=== PATIENT | male | born 1965 | race Hispanic/Latino ===

== ENCOUNTER 2017-05-15 06:38 | Day surgery (SDC) | payer OTHER ==
[2017-05-09 10:50] VITALS: BP 117/73
[2017-05-09 11:21] LABS: CREATININE 0.9 mg/dL (0.5-1.5)
[2017-05-09 12:18] LABS: APPEARANCE,URINE Clear (CLEAR); BILIRUBIN,URINE Negative (NEGATIVE); COLOR,URINE Yellow (YELLOW); GLUCOSE, URINE (UA) 500 mg/dL (NEGATIVE); KETONES,URINE Negative (NEGATIVE); LEUKOCYTE ESTERASE ,URINE Negative (NEGATIVE); NITRATE,URINE Negative (NEGATIVE); OCCULT BLOOD,URINE Negative (NEGATIVE); PROTEIN,URINE Negative (NEGATIVE); UROBILINOGEN,URINE 0.2 mg/dL (0.2-1.0)
[2017-05-09 12:39] LABS: BACTERIA,URINE None Seen /HPF (None Seen); RBC,URINE None Seen /HPF (0-1); SQUAMOUS EPITHELIAL CELL,UR Rare /LPF (0-2); WBC,URINE None Seen /HPF (0-1)
[~2017-05-15] VITALS: Ht 172.7 cm; Wt 93.4 kg
[2017-05-15] VITALS (10 sets, daily range): BP systolic 113–128; BP diastolic 55–77
[~2017-05-15 06:38] MED LIST: ALPR1TAB7 PO; CARV25TA77 PO; CEFTRIAXONE SODIUM 1 GM IVP SCH; LEVOFLOXACIN 500 MG/D5W 100 ML 100 ML IV SCH; METF500T6 PO; NIFE90TA4 PO; PANT40TA PO; ZOLP10TA2 PO
[2017-05-15] MEDS ORDERED: SODIUM CHLORIDE 0.9% 1000ML 1,000 ML IV ONE (07:24)
[2017-05-15] MEDS ORDERED: WATER FOR INJECTION,STERILE 20 ML VIAL ONE (07:27)
[2017-05-15] MEDS: CEFTRIAXONE SODIUM 1 GM ONE ×2 (07:31→08:20)
[2017-05-15] MEDS ORDERED: ONDANSETRON HCL 4 MG/2 ML VIAL ONE (07:47)
[2017-05-15] MEDS ORDERED: DEXAMETHASONE SOD PHOSPHATE 10MG/ML 1ML VIAL ONE (07:47)
[2017-05-15] MEDS ORDERED: NEOSTIGMINE METHYLSULFATE 1MG/ML IV ONE (07:47)
[2017-05-15] MEDS ORDERED: SUCCINYLCHOLINE 200MG/10ML SYR ONE (07:47)
[2017-05-15] MEDS ORDERED: GLYCOPYRROLATE 0.2 MG/ML 5 ML VIAL ONE (07:47)
[2017-05-15] MEDS ORDERED: PROPOFOL 10 MG/ML 20ML VIAL IV ONE (07:48)
[2017-05-15] MEDS ORDERED: MIDAZOLAM HCL 1 MG/ML 2ML VIAL ONE ×3 (07:48→08:33)
[2017-05-15] MEDS ORDERED: FENTANYL CITRATE PF 50 MCG/1 ML 2ML VIAL ONE ×2 (07:48→08:22)
[2017-05-15] MEDS ORDERED: FENTANYL CITRATE PF 50 MCG/1 ML 5ML AMP IV ONE (08:29)
[2017-06-20] MEDS ORDERED: ASPI-1181 PO (11:09)
[2017-06-25] MEDS ORDERED: NITR0.4T50 SL (06:55)
== END 2017-05-15 09:50 | disposition home or self-care (01) ==
LOC: DAH 06:38
PROVIDERS: ATTEND Urology
DX: N40.2 Nodular prostate without lower urinary tract symptoms (principal); Z85.46 Personal history of malignant neoplasm of prostate; Z82.49 Family history of ischemic heart disease and other diseases of the circulatory system
CPT/HCPCS: 36415; 55700; 76942; 80048; 81001; 82948; 87088; 88305; A4215; A4600; J0330; J0696; J1100; J2250 ×3; J2405; J2704; J2710; J3010 ×3; J3490; J7030 ×2

== ENCOUNTER → 2017-06-20 | Outpatient (CLI) | payer OTHER ==
[~2017-06-20] MED LIST changes: +ASPI-1181 PO; -CEFTRIAXONE SODIUM 1 GM IVP SCH; -LEVOFLOXACIN 500 MG/D5W 100 ML 100 ML IV SCH; +NITR0.4T50 SL
== END | disposition home or self-care (01) ==
LOC: RAH 12:54
PROVIDERS: ATTEND Internal Medicine Medical Oncology
DX: C61 Malignant neoplasm of prostate (principal)
CPT/HCPCS: 78306; A9503

== ENCOUNTER 2017-06-25 06:00 | Day surgery (SDC) | payer OTHER ==
[2017-06-20 10:47] VITALS: BP 124/75
[2017-06-20 10:57] LABS: BASOPHILS % (AUTO) 0.6 % (0.0-5.0); EOSINOPHILS % (AUTO) 2.1 % (0.0-8.0); HEMATOCRIT 40.1 % (42-54); LYMPHOCYTES % (AUTO) 31.8 % (21.0-51.0); MEAN CORPUSCULAR HEMOGLOBIN 31.4 pg (27.0-33.0); MEAN CORPUSCULAR HGB CONC 34.4 g/dL (32.0-36.0); MEAN CORPUSCULAR VOLUME 91.3 fL (79-99); MONOCYTES % (AUTO) 7.1 % (3.0-13.0); NEUTROPHILS % (AUTO) 58.4 % (40.0-77.0); PLATELET COUNT (AUTO) 195 K/uL (130-400); RED BLOOD CELL COUNT(AUTO) 4.39 MIL/uL (4.50-6.20); RED CELL DISTRIBUTION WIDTH 13.8 % (11.0-15.5); WHITE BLOOD COUNT (AUTO) 6.4 K/uL (4.8-10.8)
[2017-06-20 11:02] LABS: CREATININE 0.8 mg/dL (0.5-1.5); POTASSIUM 4.2 mmol/L (3.5-5.1)
[2017-06-20 11:05] LABS: APPEARANCE,URINE Clear (CLEAR); BILIRUBIN,URINE Negative (NEGATIVE); COLOR,URINE Yellow (YELLOW); GLUCOSE, URINE (UA) Negative (NEGATIVE); KETONES,URINE Negative (NEGATIVE); LEUKOCYTE ESTERASE ,URINE Negative (NEGATIVE); NITRATE,URINE Negative (NEGATIVE); OCCULT BLOOD,URINE Negative (NEGATIVE); PH,URINE 6.5 (5.0-8.0); PROTEIN,URINE Negative (NEGATIVE); UROBILINOGEN,URINE 0.2 mg/dL (0.2-1.0)
[2017-06-20 11:42] LABS: INR 0.95 (0.85-1.15); PARTIAL THROMBOPLASTIN TIME 29.6 SEC (26.3-35.5)
[2017-06-25] VITALS (10 sets, daily range): BP systolic 103–137; BP diastolic 59–88
[~2017-06-25] VITALS: Ht 175.3 cm; Wt 94.2 kg
[~2017-06-25 06:00] MED LIST changes: +DiphenhydrAMINE HCL 50 MG/ML VIAL IVP SCH; -NITR0.4T50 SL; +PHARMACY COMMUNICATION MISC SCH; +SODIUM CHLORIDE 0.9% 500ML 500 ML IV SCH
[2017-06-25] MEDS ORDERED: SODIUM CHLORIDE 0.9% 1000ML 1,000 ML IV ONE (06:23)
[2017-06-25] MEDS ORDERED: NITR0.4T50 SL ×2 (06:55)
[2017-06-25] MEDS ORDERED: IOPAMIDOL-370 100 ML VIAL IV ONE (07:03)
[2017-06-25] MEDS ORDERED: LIDOCAINE HCL 2% 20ML ONE (07:03)
[2017-06-25] MEDS ORDERED: HEPARIN SODIUM 1000UNIT/ML 10ML VIAL ONE (07:03)
[2017-06-25] MEDS ORDERED: ISOVUE-370 50ML VIAL IV ONE (07:03)
[2017-06-25] MEDS ORDERED: NITROGLYCERIN 5 MG/ML 10 ML VIAL IV ONE (07:03)
[2017-06-25] MEDS ORDERED: FENTANYL CITRATE PF 50 MCG/1 ML 2ML VIAL ONE (07:22)
[2017-06-25] MEDS ORDERED: MIDAZOLAM HCL 1 MG/ML 2ML VIAL ONE (07:22)
[2017-06-25] MEDS ORDERED: IOPAMIDOL-370 75 ML VIAL IV ONE (07:42)
[2017-06-25] MEDS ORDERED: SODIUM CHLORIDE 0.9% 1000ML 1,000 ML IV SCH (08:02)
[2017-06-25] MEDS ORDERED: ACETAMINOPHEN-CODEINE 300/30MG TAB PO PRN ×2 (08:15)
== END 2017-06-25 12:05 | disposition home or self-care (01) ==
LOC: DAH 06:00
PROVIDERS: ATTEND Internal Medicine Cardiovascular Disease
DX: I25.10 Atherosclerotic heart disease of native coronary artery without angina pectoris (principal)
CPT/HCPCS: 36415; 80048; 81003; 82948 ×2; 85025; 85610; 85730; 93005; 93458; A4606; C1760; C1894 ×2; J1200; J1644; J2250; J3010; J3490 ×2; J7030; Q9967 ×2; 99152; 99153

== ENCOUNTER → 2017-07-01 | Outpatient (CLI) | payer OTHER ==
[~2017-07-01] MED LIST changes: -DiphenhydrAMINE HCL 50 MG/ML VIAL IVP SCH; +IOPAMIDOL-370 75 ML VIAL IV ONE; +NITR0.4T50 SL; -PHARMACY COMMUNICATION MISC SCH; -SODIUM CHLORIDE 0.9% 500ML 500 ML IV SCH
== END | disposition home or self-care (01) ==
LOC: OIH 09:08
PROVIDERS: ATTEND Internal Medicine Medical Oncology
DX: C61 Malignant neoplasm of prostate (principal); K43.9 Ventral hernia without obstruction or gangrene; K40.20 Bilateral inguinal hernia, without obstruction or gangrene, not specified as recurrent
CPT/HCPCS: 74178; Q9967

== ENCOUNTER → 2017-07-23 | Outpatient (CLI) | payer OTHER ==
[~2017-07-23] MED LIST changes: -IOPAMIDOL-370 75 ML VIAL IV ONE
[2017-07-23 12:34] LABS: BASOPHILS % (AUTO) 0.4 % (0.0-5.0); HEMATOCRIT 40.7 % (42-54); LYMPHOCYTES % (AUTO) 34.3 % (21.0-51.0); MEAN CORPUSCULAR HEMOGLOBIN 30.4 pg (27.0-33.0); MEAN CORPUSCULAR HGB CONC 34.1 g/dL (32.0-36.0); MEAN CORPUSCULAR VOLUME 89.2 fL (79-99); NEUTROPHILS % (AUTO) 57.3 % (40.0-77.0); PLATELET COUNT (AUTO) 175 K/uL (130-400); RED BLOOD CELL COUNT(AUTO) 4.57 MIL/uL (4.50-6.20); WHITE BLOOD COUNT (AUTO) 5.4 K/uL (4.8-10.8)
[2017-07-23 12:45] LABS: ALBUMIN 3.8 g/dL (3.5-5.0); BILIRUBIN,TOTAL 0.6 mg/dL (0.2-1.0); CREATININE 0.9 mg/dL (0.5-1.5); INR 1.2 (0.85-1.15); POTASSIUM 3.8 mmol/L (3.5-5.1); PROTHROMBIN TIME 12.6 SEC (9.6-11.6); TOTAL PROTEIN, SERUM 7.2 g/dL (6.0-8.3)
== END | disposition home or self-care (01) ==
LOC: LAB 12:06
PROVIDERS: ATTEND Radiology Radiation Oncology
DX: Z01.818 Encounter for other preprocedural examination (principal); C61 Malignant neoplasm of prostate; R79.1 Abnormal coagulation profile
CPT/HCPCS: 36415; 71046; 80053; 85025; 85610; 93005

== ENCOUNTER → 2017-08-04 | Outpatient (CLI) | payer OTHER ==
[~2017-08-04] MED LIST changes: +GADOBENATE DIMEGLUMINE 20 ML IV ONE
== END | disposition home or self-care (01) ==
LOC: RAH 08-01 08:43
PROVIDERS: ATTEND Radiology Radiation Oncology
DX: C61 Malignant neoplasm of prostate (principal)
CPT/HCPCS: A9577

== ENCOUNTER 2017-08-15 02:37 | Emergency (ER) | payer OTHER ==
[~2017-08-15 02:37] MED LIST changes: -GADOBENATE DIMEGLUMINE 20 ML IV ONE
[2017-08-15] MEDS ORDERED: MECLIZINE HCL 25 MG TABLET ONE (03:16)
[2017-08-15 03:58] LABS: BASOPHILS % (AUTO) 0.8 % (0.0-5.0); EOSINOPHILS % (AUTO) 2.1 % (0.0-8.0); HEMATOCRIT 38.3 % (42-54); LYMPHOCYTES % (AUTO) 29.4 % (21.0-51.0); MEAN CORPUSCULAR HEMOGLOBIN 31.4 pg (27.0-33.0); MEAN CORPUSCULAR HGB CONC 34.8 g/dL (32.0-36.0); MEAN CORPUSCULAR VOLUME 90.3 fL (79-99); MONOCYTES % (AUTO) 6.8 % (3.0-13.0); NEUTROPHILS % (AUTO) 60.9 % (40.0-77.0); PLATELET COUNT (AUTO) 176 K/uL (130-400); RED BLOOD CELL COUNT(AUTO) 4.24 MIL/uL (4.50-6.20); RED CELL DISTRIBUTION WIDTH 13.7 % (11.0-15.5); WHITE BLOOD COUNT (AUTO) 7.3 K/uL (4.8-10.8)
[2017-08-15 04:06] LABS: POTASSIUM 3.7 mmol/L (3.5-5.1)
[2017-08-15 04:11] LABS: ALBUMIN 3.8 g/dL (3.5-5.0); BILIRUBIN,TOTAL 0.3 mg/dL (0.2-1.0)
== END 2017-08-15 04:31 | disposition home or self-care (01) ==
LOC: EDH 02:37
DX: R42 Dizziness and giddiness (principal); E11.9 Type 2 diabetes mellitus without complications; E78.5 Hyperlipidemia, unspecified; I10 Essential (primary) hypertension; Z88.5 Allergy status to narcotic agent; Z87.891 Personal history of nicotine dependence
CPT/HCPCS: 36415; 80053; 85025; 93005

== ENCOUNTER → 2018-02-17 | Outpatient (CLI) | payer OTHER ==
[~2018-02-17] MED LIST changes: +METF-444 PO; -METF500T6 PO
== END | disposition home or self-care (01) ==
LOC: LAB 11:12
PROVIDERS: ATTEND Radiology Radiation Oncology
DX: C61 Malignant neoplasm of prostate (principal); I10 Essential (primary) hypertension; E11.9 Type 2 diabetes mellitus without complications
CPT/HCPCS: 36415; 84153; 84154

== ENCOUNTER → 2018-06-11 | Outpatient (CLI) | payer OTHER ==
[2018-06-11 14:01] LABS: BASOPHILS % (AUTO) 0.6 % (0.0-5.0); EOSINOPHILS % (AUTO) 2.1 % (0.0-8.0); LYMPHOCYTES % (AUTO) 25.5 % (21.0-51.0); MEAN CORPUSCULAR HEMOGLOBIN 30.9 pg (27.0-33.0); MEAN CORPUSCULAR HGB CONC 33.5 g/dL (32.0-36.0); MEAN CORPUSCULAR VOLUME 92.2 fL (79-99); NEUTROPHILS % (AUTO) 62.8 % (40.0-77.0); PLATELET COUNT (AUTO) 176 K/uL (130-400); RED BLOOD CELL COUNT(AUTO) 4.34 MIL/uL (4.50-6.20); RED CELL DISTRIBUTION WIDTH 13.3 % (11.0-15.5); WHITE BLOOD COUNT (AUTO) 5.9 K/uL (4.8-10.8)
[2018-06-11 14:05] LABS: APPEARANCE,URINE Clear (CLEAR); BILIRUBIN,URINE Negative (NEGATIVE); COLOR,URINE Yellow (YELLOW); GLUCOSE, URINE (UA) >=1000 mg/dL (NEGATIVE); KETONES,URINE Trace mg/dL (NEGATIVE); LEUKOCYTE ESTERASE ,URINE Negative (NEGATIVE); NITRATE,URINE Negative (NEGATIVE); OCCULT BLOOD,URINE Negative (NEGATIVE); PROTEIN,URINE Negative (NEGATIVE); UROBILINOGEN,URINE 0.2 mg/dL (0.2-1.0)
[2018-06-11 14:09] LABS: HEMOGLOBIN A1C 7.1 % (4.0-6.0)
[2018-06-11 14:14] LABS: BACTERIA,URINE Rare /HPF (None Seen); RBC,URINE 0-1 /HPF (0-1); SQUAMOUS EPITHELIAL CELL,UR Rare /HPF (0-2); WBC,URINE 0-1 /HPF (0-1)
[2018-06-11 14:26] LABS: ALBUMIN 3.9 g/dL (3.5-5.0); BILIRUBIN,DIRECT 0.1 mg/dL (0.0-0.3); BILIRUBIN,TOTAL 0.3 mg/dL (0.2-1.0); CREATININE 0.8 mg/dL (0.5-1.5); POTASSIUM 3.9 mmol/L (3.5-5.1); THYROID STIMULATING HORMONE 1.3 uIU/mL (0.36-3.74); TOTAL PROTEIN, SERUM 7.4 g/dL (6.0-8.3)
== END | disposition home or self-care (01) ==
LOC: LAB 13:19
PROVIDERS: ATTEND Pediatrics
DX: E11.65 Type 2 diabetes mellitus with hyperglycemia (principal); I25.10 Atherosclerotic heart disease of native coronary artery without angina pectoris; I10 Essential (primary) hypertension; B20 Human immunodeficiency virus [HIV] disease
CPT/HCPCS: 36415; 80048; 80061; 80076; 81001; 83036; 84153; 84154; 84443; 85025

== ENCOUNTER → 2018-08-14 | Outpatient (CLI) | payer OTHER | END | disposition home or self-care (01) | LOC: LAB 07:59 | PROVIDERS: ATTEND Radiology Radiation Oncology | DX: C61 Malignant neoplasm of prostate (principal) | CPT/HCPCS: 36415; 84153 ==

== ENCOUNTER → 2018-09-11 | Outpatient (CLI) | payer OTHER | END | disposition home or self-care (01) | LOC: RAH 08:40 | PROVIDERS: ATTEND Urology | DX: C61 Malignant neoplasm of prostate (principal) | CPT/HCPCS: 78306; A9503 ==

== ENCOUNTER → 2018-09-15 | Outpatient (CLI) | payer OTHER ==
[2018-09-15 15:44] LABS: CREATININE 0.9 mg/dL (0.5-1.5)
== END | disposition home or self-care (01) ==
LOC: LAB 15:21
PROVIDERS: ATTEND Urology
DX: C61 Malignant neoplasm of prostate (principal)
CPT/HCPCS: 36415; 82565; 84520

== ENCOUNTER → 2018-09-16 | Outpatient (CLI) | payer OTHER ==
[~2018-09-16] MED LIST changes: +IOHEXOL-350 75 ML VIAL IV ONE
== END | disposition home or self-care (01) ==
LOC: RAH 08:14
PROVIDERS: ATTEND Urology
DX: K57.30 Diverticulosis of large intestine without perforation or abscess without bleeding (principal); R59.9 Enlarged lymph nodes, unspecified
CPT/HCPCS: 74177; Q9967

== ENCOUNTER → 2018-09-25 | Outpatient (CLI) | payer OTHER ==
[~2018-09-25] MED LIST changes: -IOHEXOL-350 75 ML VIAL IV ONE
[2018-09-25 11:35] LABS: BASOPHILS % (AUTO) 0.8 % (0.0-5.0); EOSINOPHILS % (AUTO) 2.3 % (0.0-8.0); LYMPHOCYTES % (AUTO) 28.2 % (21.0-51.0); MEAN CORPUSCULAR HEMOGLOBIN 30.7 pg (27.0-33.0); NEUTROPHILS % (AUTO) 59.7 % (40.0-77.0); PLATELET COUNT (AUTO) 177 K/uL (130-400); RED BLOOD CELL COUNT(AUTO) 4.41 MIL/uL (4.50-6.20); RED CELL DISTRIBUTION WIDTH 13.3 % (11.0-15.5); WHITE BLOOD COUNT (AUTO) 4.7 K/uL (4.8-10.8)
[2018-09-25 11:37] LABS: APPEARANCE,URINE Clear (CLEAR); BILIRUBIN,URINE Negative (NEGATIVE); COLOR,URINE Yellow (YELLOW); GLUCOSE, URINE (UA) Negative (NEGATIVE); KETONES,URINE Negative (NEGATIVE); LEUKOCYTE ESTERASE ,URINE Negative (NEGATIVE); NITRATE,URINE Negative (NEGATIVE); OCCULT BLOOD,URINE Negative (NEGATIVE); PROTEIN,URINE Negative (NEGATIVE); UROBILINOGEN,URINE 0.2 mg/dL (0.2-1.0)
[2018-09-25 11:56] LABS: HEMOGLOBIN A1C 7.6 % (4.0-6.0)
[2018-09-25 12:01] LABS: ALBUMIN 3.8 g/dL (3.5-5.0); BILIRUBIN,DIRECT 0.1 mg/dL (0.0-0.3); BILIRUBIN,TOTAL 0.4 mg/dL (0.2-1.0); CREATININE 0.9 mg/dL (0.5-1.5); THYROID STIMULATING HORMONE 1.45 uIU/mL (0.36-3.74)
== END | disposition home or self-care (01) ==
LOC: LAB 11:12
PROVIDERS: ATTEND Pediatrics
DX: I10 Essential (primary) hypertension (principal); E11.9 Type 2 diabetes mellitus without complications; E78.5 Hyperlipidemia, unspecified; C61 Malignant neoplasm of prostate
CPT/HCPCS: 36415; 80048; 80061; 80076; 81003; 83036; 84153; 84443; 85025

== ENCOUNTER → 2018-12-14 | Outpatient (CLI) | payer OTHER ==
[2018-12-14 16:48] LABS: BASOPHILS % (AUTO) 0.7 % (0.0-5.0); EOSINOPHILS % (AUTO) 1.7 % (0.0-8.0); HEMATOCRIT 38.7 % (42-54); LYMPHOCYTES % (AUTO) 31.2 % (21.0-51.0); MEAN CORPUSCULAR HEMOGLOBIN 31.1 pg (27.0-33.0); MEAN CORPUSCULAR HGB CONC 33.8 g/dL (32.0-36.0); MEAN CORPUSCULAR VOLUME 91.9 fL (79-99); MONOCYTES % (AUTO) 6.4 % (3.0-13.0); PLATELET COUNT (AUTO) 169 K/uL (130-400); RED BLOOD CELL COUNT(AUTO) 4.22 MIL/uL (4.50-6.20); RED CELL DISTRIBUTION WIDTH 13.8 % (11.0-15.5); WHITE BLOOD COUNT (AUTO) 6.1 K/uL (4.8-10.8)
[2018-12-14 17:47] LABS: ALBUMIN 3.7 g/dL (3.5-5.0); BILIRUBIN,TOTAL 0.3 mg/dL (0.2-1.0); TOTAL PROTEIN, SERUM 6.8 g/dL (6.0-8.3)
== END | disposition home or self-care (01) ==
LOC: LAB 10:00
PROVIDERS: ATTEND Internal Medicine Medical Oncology
DX: C61 Malignant neoplasm of prostate (principal)
CPT/HCPCS: 36415; 80053; 84153; 84154; 85025

== ENCOUNTER → 2019-02-04 | Outpatient (CLI) | payer OTHER ==
[2019-02-04 16:00] LABS: BASOPHILS % (AUTO) 0.6 % (0.0-5.0); EOSINOPHILS % (AUTO) 1.2 % (0.0-8.0); HEMATOCRIT 40.7 % (42-54); LYMPHOCYTES % (AUTO) 27.6 % (21.0-51.0); MEAN CORPUSCULAR HEMOGLOBIN 31.3 pg (27.0-33.0); MEAN CORPUSCULAR HGB CONC 34.6 g/dL (32.0-36.0); MEAN CORPUSCULAR VOLUME 90.5 fL (79-99); MONOCYTES % (AUTO) 6.9 % (3.0-13.0); NEUTROPHILS % (AUTO) 63.7 % (40.0-77.0); PLATELET COUNT (AUTO) 183 K/uL (130-400); RED CELL DISTRIBUTION WIDTH 13.4 % (11.0-15.5); WHITE BLOOD COUNT (AUTO) 6.4 K/uL (4.8-10.8)
[2019-02-04 16:01] LABS: APPEARANCE,URINE Clear (CLEAR); BILIRUBIN,URINE Negative (NEGATIVE); COLOR,URINE Yellow (YELLOW); GLUCOSE, URINE (UA) >=1000 mg/dL (NEGATIVE); KETONES,URINE Negative (NEGATIVE); LEUKOCYTE ESTERASE ,URINE Negative (NEGATIVE); NITRATE,URINE Negative (NEGATIVE); OCCULT BLOOD,URINE Negative (NEGATIVE); PROTEIN,URINE Negative (NEGATIVE)
[2019-02-04 16:08] LABS: HEMOGLOBIN A1C 9.8 % (4.0-6.0)
[2019-02-04 16:15] LABS: BACTERIA,URINE None Seen /HPF (None Seen); MUCUS,URINE Rare LPF (None Seen); SQUAMOUS EPITHELIAL CELL,UR 0-2 /HPF (0-2)
[2019-02-04 16:21] LABS: BILIRUBIN,DIRECT 0.1 mg/dL (0.0-0.3); BILIRUBIN,TOTAL 0.6 mg/dL (0.2-1.0); POTASSIUM 4.1 mmol/L (3.5-5.1); THYROID STIMULATING HORMONE 1.3 uIU/mL (0.36-3.74); TOTAL PROTEIN, SERUM 7.4 g/dL (6.0-8.3)
== END | disposition home or self-care (01) ==
LOC: RAH 15:35
PROVIDERS: ATTEND Internal Medicine Medical Oncology
DX: Z13.220 Encounter for screening for lipoid disorders (principal); Z13.29 Encounter for screening for other suspected endocrine disorder; C61 Malignant neoplasm of prostate; E11.69 Type 2 diabetes mellitus with other specified complication; M16.0 Bilateral primary osteoarthritis of hip; M47.816 Spondylosis without myelopathy or radiculopathy, lumbar region; M47.814 Spondylosis without myelopathy or radiculopathy, thoracic region; I10 Essential (primary) hypertension; R79.9 Abnormal finding of blood chemistry, unspecified
CPT/HCPCS: 36415; 72070; 72100; 73521; 73552; 80053; 80061; 80076; 81001; 82105; 82378; 83036; 84153; 84154; 84443; 85025; 86316

== ENCOUNTER 2019-03-26 14:40 | Inpatient (IN) | payer OTHER ==
[~2019-03-26] VITALS: Ht 170.2 cm; Wt 90.3 kg
[2019-03-26 15:11] LABS: BASOPHILS % (AUTO) 0.4 % (0.0-5.0); EOSINOPHILS % (AUTO) 1.3 % (0.0-8.0); HEMATOCRIT 44.3 % (42-54); LYMPHOCYTES % (AUTO) 10.4 % (21.0-51.0); MEAN CORPUSCULAR HEMOGLOBIN 31.4 pg (27.0-33.0); MEAN CORPUSCULAR VOLUME 92.5 fL (79-99); MONOCYTES % (AUTO) 7.3 % (3.0-13.0); NEUTROPHILS % (AUTO) 80.6 % (40.0-77.0); PLATELET COUNT (AUTO) 168 K/uL (130-400); RED BLOOD CELL COUNT(AUTO) 4.79 MIL/uL (4.50-6.20); RED CELL DISTRIBUTION WIDTH 13.1 % (11.0-15.5); WHITE BLOOD COUNT (AUTO) 6.1 K/uL (4.8-10.8)
[2019-03-26 15:21] LABS: POTASSIUM 4.3 mmol/L (3.5-5.1)
[2019-03-26 15:22] LABS: INR 0.93 (0.85-1.15); PROTHROMBIN TIME 9.8 SEC (9.6-11.6)
[2019-03-26 15:24] LABS: ALBUMIN 3.9 g/dL (3.5-5.0)
[2019-03-26 15:46] LABS: BILIRUBIN,TOTAL 0.5 mg/dL (0.2-1.0); TOTAL PROTEIN, SERUM 7.7 g/dL (6.0-8.3)
[2019-03-26] MEDS ORDERED: KETOROLAC TROMETHAMINE 60 MG/2 ML VIAL ONE (15:51)
[2019-03-26 16:08] LABS: APPEARANCE,URINE Cloudy (CLEAR); BILIRUBIN,URINE Negative (NEGATIVE); COLOR,URINE Dark Yellow (YELLOW); GLUCOSE, URINE (UA) Negative (NEGATIVE); KETONES,URINE Trace mg/dL (NEGATIVE); LEUKOCYTE ESTERASE ,URINE Trace (NEGATIVE); NITRATE,URINE Negative (NEGATIVE); OCCULT BLOOD,URINE Negative (NEGATIVE); PROTEIN,URINE POS 1+ mg/dL (NEGATIVE); UROBILINOGEN,URINE 0.2 mg/dL (0.2-1.0)
[2019-03-26 16:50] LABS: BACTERIA,URINE Few /HPF (None Seen); RBC,URINE 0-1 /HPF (0-1)
[2019-03-26] MEDS ORDERED: CEFTRIAXONE SODIUM 1 GM ONE (17:34)
[2019-03-26] MEDS ORDERED: ONDANSETRON HCL 4 MG/2 ML VIAL ONE (17:34)
[2019-03-26] MEDS ORDERED: HYDROMORPHONE 1 MG/1 ML AMP ONE ×2 (17:35→20:49)
[2019-03-26] MEDS ORDERED: SODIUM CHLORIDE 0.9% 100 ML IV ONE (17:36)
[2019-03-26] MEDS ORDERED: ACETAMINOPHEN 325 MG TAB PO PRN (19:15)
[2019-03-26] MEDS ORDERED: PHARMACY COMMUNICATION MISC SCH (19:15)
[2019-03-26] MEDS: PHARMACY COMMUNICATION MISC SCH (19:15)
[2019-03-26] MEDS ORDERED: PANTOPRAZOLE SODIUM 40 MG TABLET.DR PO ONE (19:29)
[2019-03-26] MEDS ORDERED: SODIUM CHLORIDE 0.9% 1000ML 1,000 ML IV ONE (19:30)
[2019-03-26 22:30] VITALS: BP 139/81
[2019-03-26] MEDS ORDERED: HYDR-4457 PO (23:13)
[2019-03-26] MEDS ORDERED: IBUP-2077 PO (23:13)
[2019-03-26] MEDS ORDERED: METF-446 PO (23:13)
[2019-03-26] MEDS ORDERED: ALPR1TAB2 PO (23:13)
[2019-03-26] MEDS ORDERED: IBUPROFEN 800 MG TAB PO PRN (23:15)
[2019-03-26] MEDS ORDERED: MELA3TAB66 PO (23:16)
[2019-03-26] MEDS: CEFTRIAXONE SODIUM 1 GM IVP SCH (23:30)
[2019-03-26] MEDS: SODIUM CHLORIDE 0.9% 1000ML 1,000 ML IV SCH (23:38)
[2019-03-27] MEDS: HYDROMORPHONE HCL 0.5 MG/0.5 ML ML IVP PRN ×2 (00:53→10:53)
[2019-03-27] MEDS: PHARMACY COMMUNICATION MISC SCH (02:47)
[2019-03-27 04:00] VITALS: BP 113/63
[2019-03-27] MEDS: SODIUM CHLORIDE 0.9% 1000ML 1,000 ML IV SCH ×3 (04:25→20:40)
[2019-03-27 05:57] LABS: HEMATOCRIT 37.4 % (42-54); MEAN CORPUSCULAR HEMOGLOBIN 31.1 pg (27.0-33.0); MEAN CORPUSCULAR HGB CONC 33.7 g/dL (32.0-36.0); MEAN CORPUSCULAR VOLUME 92.1 fL (79-99); PLATELET COUNT (AUTO) 160 K/uL (130-400); RED BLOOD CELL COUNT(AUTO) 4.06 MIL/uL (4.50-6.20); RED CELL DISTRIBUTION WIDTH 13.1 % (11.0-15.5)
[2019-03-27 06:12] LABS: CREATININE 0.8 mg/dL (0.5-1.5); MAGNESIUM 1.4 mg/dL (1.80-2.40); PHOSPHORUS 3.9 mg/dL (2.5-4.9)
[2019-03-27] MEDS: INSULIN HUMULIN R 100 UNIT/ML 3ML SQ SCH ×4 (06:38→21:00)
[2019-03-27 08:00] VITALS: BP 121/72
[2019-03-27] MEDS: METFORMIN HCL 500 MG TABLET PO SCH ×2 (08:31→16:41)
[2019-03-27] MEDS: NIFEDIPINE ER 30 MG TAB PO SCH (08:31)
[2019-03-27] MEDS: PANTOPRAZOLE SODIUM 40 MG TABLET.DR PO SCH (08:32)
[2019-03-27] MEDS: CARVEDILOL 25 MG TABLET PO SCH ×2 (08:32→20:42)
[2019-03-27] MEDS: MAGNESIUM 2GM PREMIX 50ML 50 ML IV PRN (08:35)
[2019-03-27] MEDS ORDERED: PANTOPRAZOLE SODIUM 40 MG TABLET.DR PO SCH (09:00)
[2019-03-27 11:00] VITALS: BP 121/72
[2019-03-27] MEDS: HYDROCODONE/ACETAMINOPHEN 5/325 MG TAB PO PRN ×2 (12:34→20:40)
[2019-03-27 16:00] VITALS: BP 122/65
[2019-03-27] MEDS ORDERED: ACETAMINOPHEN 325 MG TAB PO SCH ×2 (16:00→20:00)
[2019-03-27] MEDS: ONDANSETRON HCL 4 MG/2 ML VIAL IVP PRN ×2 (16:42→22:19)
[2019-03-27] MEDS: HYDROMORPHONE 1 MG/1 ML AMP IVP PRN (16:52)
--- NOTE | 2019-03-27 17:56 | NUR ---
D/C PLAN CM spoke to pt regarding d/c planning. Spouse at bedside. Pt lives with spouse. Spouse can assist in care if needed. Pt previously ind. with [facility]. Plan to home. No needs verbalized or identified. CM to f/u Addendum: 03/27/19 at 1758 by ANTONIA MODI CM Amended: Links added.
[2019-03-27 20:00] VITALS: BP 139/75
[2019-03-27] MEDS: MELATONIN 3 MG PO SCH (21:00)
[2019-03-27] MEDS: CEFTRIAXONE SODIUM 1 GM IVP SCH (22:19)
[2019-03-27 23:46] VITALS: BP 133/73
[2019-03-28] MEDS: HYDROMORPHONE 1 MG/1 ML AMP IVP PRN ×3 (00:15→12:48)
[2019-03-28 05:14] LABS: HEMOGLOBIN A1C 9.5 % (4.0-6.0)
[2019-03-28 05:33] LABS: CREATININE 0.8 mg/dL (0.5-1.5); MAGNESIUM 1.6 mg/dL (1.80-2.40); POTASSIUM 3.5 mmol/L (3.5-5.1)
[2019-03-28] MEDS ORDERED: POTASSIUM CHLORIDE 10% ELIXIR 20 MEQ/15 ML UDCUP PO PRN (06:00)
[2019-03-28] MEDS: MAGNESIUM 2GM PREMIX 50ML 50 ML IV PRN (06:22)
[2019-03-28] MEDS: INSULIN HUMULIN R 100 UNIT/ML 3ML SQ SCH ×4 (06:25→20:50)
[2019-03-28] MEDS: HYDROCODONE/ACETAMINOPHEN 5/325 MG TAB PO PRN ×4 (06:34→22:19)
[2019-03-28 08:30] VITALS: BP 130/79
[2019-03-28] MEDS: NIFEDIPINE ER 30 MG TAB PO SCH (08:44)
[2019-03-28] MEDS: CARVEDILOL 25 MG TABLET PO SCH ×2 (08:44→20:50)
[2019-03-28] MEDS: METFORMIN HCL 500 MG TABLET PO SCH ×2 (08:45→17:12)
[2019-03-28] MEDS: PANTOPRAZOLE SODIUM 40 MG TABLET.DR PO SCH (08:45)
[2019-03-28] MEDS: POTASSIUM CHLORIDE 20 MEQ ERTAB PO PRN ×2 (08:45→10:44)
[2019-03-28 11:00] VITALS: BP 123/75
[2019-03-28] MEDS: SODIUM CHLORIDE 0.9% 1000ML 1,000 ML IV SCH ×2 (11:19→20:50)
[2019-03-28] MEDS ORDERED: NALOXONE HCL 0.4 MG/1 ML ML IVP PRN (13:30)
[2019-03-28] MEDS ORDERED: DiphenhydrAMINE HCL 50 MG/ML VIAL IVP PRN (13:30)
[2019-03-28] MEDS ORDERED: DIPHENHYDRAMINE HCL 25 MG CAPSULE PO PRN (13:30)
[2019-03-28] MEDS: HYDROMORPHONE PCA 10MG/50 ML ( 0.2 MG/ML ) IV PRN (14:26)
[2019-03-28 16:00] VITALS: BP 144/83
[2019-03-28] MEDS: ALPRAZOLAM 1 MG TAB PO PRN (17:16)
--- NOTE | 2019-03-28 18:38 | NUR ---
PAGED DR. ZARAGOZA CALLED OFFICE AT [phone] REGARDING CONSULTATION FOR PATIENT, HAS NOT MADE ROUNDS OR SEEN PATIENT OF THIS DATE.
[2019-03-28 20:00] VITALS: BP 127/71
[2019-03-28] MEDS: MELATONIN 3 MG PO SCH (20:49)
[2019-03-28] MEDS: CEFTRIAXONE SODIUM 1 GM IVP SCH (20:51)
[2019-03-28] MEDS: ONDANSETRON HCL 4 MG/2 ML VIAL IVP PRN (23:39)
[2019-03-28 23:53] VITALS: BP 149/82
[2019-03-29 05:13] LABS: HEMATOCRIT 35.9 % (42-54); MEAN CORPUSCULAR HEMOGLOBIN 31.3 pg (27.0-33.0); MEAN CORPUSCULAR VOLUME 92.3 fL (79-99); NUCLEATED RED BLOOD CELLS 0.1 % (0.0-0.19); PLATELET COUNT (AUTO) 167 K/uL (130-400); RED BLOOD CELL COUNT(AUTO) 3.89 MIL/uL (4.50-6.20); RED CELL DISTRIBUTION WIDTH 13.1 % (11.0-15.5); WHITE BLOOD COUNT (AUTO) 3.9 K/uL (4.8-10.8)
[2019-03-29 05:22] LABS: CREATININE 0.8 mg/dL (0.5-1.5)
[2019-03-29] MEDS: MAGNESIUM 2GM PREMIX 50ML 50 ML IV PRN (06:04)
[2019-03-29] MEDS: INSULIN HUMULIN R 100 UNIT/ML 3ML SQ SCH ×4 (06:16→19:52)
[2019-03-29] MEDS: SODIUM CHLORIDE 0.9% 1000ML 1,000 ML IV SCH ×2 (06:18→17:15)
[2019-03-29 07:30] VITALS: BP 118/75
[2019-03-29] MEDS: HYDROMORPHONE 1 MG/1 ML AMP IVP PRN ×3 (08:40→17:24)
[2019-03-29] MEDS: NIFEDIPINE ER 30 MG TAB PO SCH (08:40)
[2019-03-29] MEDS: METFORMIN HCL 500 MG TABLET PO SCH ×2 (08:41→17:10)
[2019-03-29] MEDS: PANTOPRAZOLE SODIUM 40 MG TABLET.DR PO SCH (08:42)
[2019-03-29] MEDS: CARVEDILOL 25 MG TABLET PO SCH ×2 (08:42→19:47)
[2019-03-29] MEDS: HYDROCODONE/ACETAMINOPHEN 5/325 MG TAB PO PRN ×3 (10:25→21:49)
--- NOTE | 2019-03-29 10:30 | NUR ---
Paged Dr Cutler. waiting electronic commerce specialist back. Patient has not been seen by Dr Cutler or Dr Wilkins as of this day. S
[2019-03-29 11:00] VITALS: BP 129/88
[2019-03-29] MEDS ORDERED: FENTANYL 50 MCG/HR PATCH TD SCH (13:45)
[2019-03-29] MEDS: HYDROMORPHONE PCA 10MG/50 ML ( 0.2 MG/ML ) IV PRN (15:44)
[2019-03-29 16:00] VITALS: BP 119/76
[2019-03-29 19:28] VITALS: BP 139/75
[2019-03-29] MEDS: ALPRAZOLAM 1 MG TAB PO PRN (19:47)
[2019-03-29] MEDS: ONDANSETRON HCL 4 MG/2 ML VIAL IVP PRN (19:47)
[2019-03-29] MEDS: MELATONIN 3 MG PO SCH (19:48)
[2019-03-29] MEDS: DEXAMETHASONE SOD PHOSPHATE 4 MG/ML 1ML VIAL IVP SCH (21:41)
[2019-03-29] MEDS: CEFTRIAXONE SODIUM 1 GM IVP SCH (21:48)
[2019-03-29 23:30] VITALS: BP 135/75
[2019-03-30] MEDS: DEXAMETHASONE SOD PHOSPHATE 4 MG/ML 1ML VIAL IVP SCH ×3 (05:43→22:29)
[2019-03-30] MEDS: SODIUM CHLORIDE 0.9% 1000ML 1,000 ML IV SCH ×2 (05:44→13:59)
[2019-03-30] MEDS: INSULIN HUMULIN R 100 UNIT/ML 3ML SQ SCH ×4 (05:50→20:42)
[2019-03-30 05:55] VITALS: BP 129/74
[2019-03-30 07:55] VITALS: BP 136/76
[2019-03-30] MEDS: METFORMIN HCL 500 MG TABLET PO SCH ×2 (08:51→17:13)
[2019-03-30] MEDS: NIFEDIPINE ER 30 MG TAB PO SCH (08:51)
[2019-03-30] MEDS: PANTOPRAZOLE SODIUM 40 MG TABLET.DR PO SCH (08:52)
[2019-03-30] MEDS: CARVEDILOL 25 MG TABLET PO SCH ×2 (08:52→20:35)
[2019-03-30] MEDS: HYDROMORPHONE 1 MG/1 ML AMP IVP PRN (08:53)
[2019-03-30] MEDS: SENNOSIDES 8.6 MG TABLET PO SCH (10:21)
[2019-03-30] MEDS ORDERED: MAGNESIUM 2GM PREMIX 50ML 50 ML IV SCH (10:30)
[2019-03-30 12:08] VITALS: BP 133/85
[2019-03-30] MEDS: HYDROCODONE/ACETAMINOPHEN 5/325 MG TAB PO PRN (12:34)
[2019-03-30] MEDS ORDERED: FENTANYL 100 MCG/HR PATCH TD SCH (13:00)
[2019-03-30] MEDS: ALPRAZOLAM 1 MG TAB PO PRN (17:13)
[2019-03-30 17:14] VITALS: BP 121/77
[2019-03-30 19:15] VITALS: BP 113/69
[2019-03-30] MEDS: MELATONIN 3 MG PO SCH (20:35)
[2019-03-30] MEDS: CEFTRIAXONE SODIUM 1 GM IVP SCH (22:30)
[2019-03-31] VITALS: BP 119/71
[2019-03-31] MEDS: HYDROCODONE/ACETAMINOPHEN 5/325 MG TAB PO PRN ×3 (00:04→15:14)
[2019-03-31 05:31] LABS: CREATININE 0.9 mg/dL (0.5-1.5); MAGNESIUM 1.8 mg/dL (1.80-2.40); PHOSPHORUS 4.1 mg/dL (2.5-4.9); POTASSIUM 4.4 mmol/L (3.5-5.1)
[2019-03-31 05:38] LABS: BASOPHILS % (AUTO) 0.3 % (0.0-5.0); EOSINOPHILS % (AUTO) 0.1 % (0.0-8.0); HEMATOCRIT 34.9 % (42-54); LYMPHOCYTES % (AUTO) 24.6 % (21.0-51.0); MEAN CORPUSCULAR HEMOGLOBIN 31.7 pg (27.0-33.0); MEAN CORPUSCULAR HGB CONC 34.4 g/dL (32.0-36.0); MEAN CORPUSCULAR VOLUME 92.3 fL (79-99); MONOCYTES % (AUTO) 5.1 % (3.0-13.0); NEUTROPHILS % (AUTO) 69.9 % (40.0-77.0); PLATELET COUNT (AUTO) 177 K/uL (130-400); RED BLOOD CELL COUNT(AUTO) 3.79 MIL/uL (4.50-6.20); RED CELL DISTRIBUTION WIDTH 12.6 % (11.0-15.5); WHITE BLOOD COUNT (AUTO) 6.1 K/uL (4.8-10.8)
[2019-03-31 06:00] VITALS: BP 124/74
[2019-03-31] MEDS: DEXAMETHASONE SOD PHOSPHATE 4 MG/ML 1ML VIAL IVP SCH ×3 (06:44→21:21)
[2019-03-31] MEDS: INSULIN HUMULIN R 100 UNIT/ML 3ML SQ SCH ×4 (06:45→21:49)
[2019-03-31 08:00] VITALS: BP 139/83
[2019-03-31] MEDS: METFORMIN HCL 500 MG TABLET PO SCH ×2 (08:22→19:03)
[2019-03-31] MEDS: PANTOPRAZOLE SODIUM 40 MG TABLET.DR PO SCH (08:22)
[2019-03-31] MEDS: NIFEDIPINE ER 30 MG TAB PO SCH (08:22)
[2019-03-31] MEDS: SENNOSIDES 8.6 MG TABLET PO SCH (08:23)
[2019-03-31] MEDS: CARVEDILOL 25 MG TABLET PO SCH ×2 (08:24→21:22)
[2019-03-31 11:16] VITALS: BP 150/90
[2019-03-31] MEDS: MAGNESIUM 2GM PREMIX 50ML 50 ML IV PRN (11:29)
[2019-03-31] MEDS: HYDROMORPHONE 1 MG/1 ML AMP IVP PRN ×3 (11:30→23:51)
--- NOTE | 2019-03-31 13:49 | NUR ---
RDSCREEN - LOS X 5 Pt admitted for Intractable R. Hip Pain. 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 Recommend to add 75gm CCD. Pt tolerating Heart Healthy diet with no report of GI distress, PO intake at 100%. Pt monitored labs: BG 229, Ca 8.4, Mg 1.60. RD to continue to monitor. Please notify RD as additional nutrition concerns arise. Thank you. Addendum: 03/31/19 at [address] Amended: Links added.
[2019-03-31 16:00] VITALS: BP 145/80
[2019-03-31] MEDS: ALPRAZOLAM 1 MG TAB PO PRN (16:30)
[2019-03-31] MEDS: SODIUM CHLORIDE 0.9% 1000ML 1,000 ML IV SCH ×2 (19:15→19:46)
[2019-03-31 20:00] VITALS: BP 117/72
[2019-03-31] MEDS ORDERED: INSULIN GLARGINE 100 UNITS/ML 10 ML VIAL SQ SCH ×2 (21:00)
[2019-03-31] MEDS: MELATONIN 3 MG PO SCH (21:00)
[2019-03-31] MEDS: CEFTRIAXONE SODIUM 1 GM IVP SCH (23:44)
[2019-04-01] VITALS: BP 125/73
[2019-04-01] MEDS: HYDROMORPHONE 1 MG/1 ML AMP IVP PRN (04:17)
[2019-04-01] MEDS: SODIUM CHLORIDE 0.9% 1000ML 1,000 ML IV SCH (04:17)
[2019-04-01 04:30] VITALS: BP 127/78
[2019-04-01] MEDS: INSULIN HUMULIN R 100 UNIT/ML 3ML SQ SCH ×2 (06:51→12:01)
[2019-04-01] MEDS: MAGNESIUM 2GM PREMIX 50ML 50 ML IV PRN (07:25)
[2019-04-01 08:00] VITALS: BP 132/74
--- NOTE | 2019-04-01 08:17 | NUR ---
MET W PATIENT STILL W ++ PAIN, STATES HAS GOOD SUPPORT AT HOME . FILING FOR ST DISABILITY
[2019-04-01] MEDS: SENNOSIDES 8.6 MG TABLET PO SCH (08:57)
[2019-04-01] MEDS: NIFEDIPINE ER 30 MG TAB PO SCH (08:57)
[2019-04-01] MEDS: PANTOPRAZOLE SODIUM 40 MG TABLET.DR PO SCH (08:57)
[2019-04-01] MEDS: METFORMIN HCL 500 MG TABLET PO SCH (08:57)
[2019-04-01] MEDS: CARVEDILOL 25 MG TABLET PO SCH (08:58)
[2019-04-01] MEDS: DEXAMETHASONE SOD PHOSPHATE 4 MG/ML 1ML VIAL IVP SCH (08:58)
[2019-04-01 10:05] LABS: CREATININE 0.7 mg/dL (0.5-1.5)
[2019-04-01 11:41] VITALS: BP 122/67
[2019-04-01] MEDS ORDERED: FENTANYL 75 MCG/HR PATCH TD SCH (15:00)
--- NOTE | 2019-04-01 17:12 | NUR ---
PATIENT DISCHARGE PATIENT DISCHARGED, IV DISCONTINUED, CATHLON INTACT, BLEEDING CONTROLLED, CATHLON INTACT, PATIENT TOLERATED WITHOUT INCIDENT.
== END 2019-04-01 17:24 | disposition home or self-care (01) | DRG 543 ==
LOC: EDH 14:40 → EDHIP 18:20 → OBSVTOIN 18:20 → 3AH 22:27
PROVIDERS: ADMIT Internal Medicine; ATTEND Internal Medicine
DX: C79.51 Secondary malignant neoplasm of bone (principal); N39.0 Urinary tract infection, site not specified; C61 Malignant neoplasm of prostate; E83.42 Hypomagnesemia; E11.9 Type 2 diabetes mellitus without complications; E87.8 Other disorders of electrolyte and fluid balance, not elsewhere classified; I10 Essential (primary) hypertension; Z85.46 Personal history of malignant neoplasm of prostate; Z92.3 Personal history of irradiation
CPT/HCPCS: 36415; 71045; 72100; 73502; 74176; 76700; 78306; 80048; 80053; 80061; 81001; 82150; 82948; 83036; 83690; 83735; 84100; 84153; 85025; 85027; 85610; 85730; 87088; A9503; G0378; J0696; J1100; J1170; J1815; J1885; J2405; J3475; J7030

== ENCOUNTER → 2019-06-28 | Outpatient (CLI) | payer OTHER ==
[~2019-06-28] MED LIST changes: +ALPR1TAB2 PO; -ALPR1TAB7 PO; -ASPI-1181 PO; +HYDR-4457 PO; +IBUP-2077 PO; +MELA3TAB66 PO; -METF-444 PO; +METF-446 PO; -NITR0.4T50 SL; -ZOLP10TA2 PO
[2019-06-28 13:42] LABS: BASOPHILS % (AUTO) 0.6 % (0.0-5.0); EOSINOPHILS % (AUTO) 0.7 % (0.0-8.0); HEMATOCRIT 32.7 % (42-54); LYMPHOCYTES % (AUTO) 9.1 % (21.0-51.0); MEAN CORPUSCULAR HEMOGLOBIN 28.2 pg (27.0-33.0); MEAN CORPUSCULAR HGB CONC 32.7 g/dL (32.0-36.0); MEAN CORPUSCULAR VOLUME 86.1 fL (79-99); MONOCYTES % (AUTO) 7.8 % (3.0-13.0); NEUTROPHILS % (AUTO) 81.1 % (40.0-77.0); PLATELET COUNT (AUTO) 225 K/uL (130-400); RED CELL DISTRIBUTION WIDTH 12.7 % (11.0-15.5); WHITE BLOOD COUNT (AUTO) 5.4 K/uL (4.8-10.8)
[2019-06-28 13:50] LABS: HEMOGLOBIN A1C 7.8 % (4.0-6.0)
[2019-06-28 14:04] LABS: BILIRUBIN,DIRECT 0.1 mg/dL (0.0-0.3); BILIRUBIN,TOTAL 0.4 mg/dL (0.2-1.0); CREATININE 0.8 mg/dL (0.5-1.5); POTASSIUM 3.6 mmol/L (3.5-5.1); THYROID STIMULATING HORMONE 0.63 uIU/mL (0.36-3.74); TOTAL PROTEIN, SERUM 7.2 g/dL (6.0-8.3)
== END | disposition home or self-care (01) ==
LOC: RAH 13:02
PROVIDERS: ATTEND Internal Medicine Medical Oncology
DX: C61 Malignant neoplasm of prostate (principal); E11.65 Type 2 diabetes mellitus with hyperglycemia; G89.4 Chronic pain syndrome; I25.10 Atherosclerotic heart disease of native coronary artery without angina pectoris
CPT/HCPCS: 36415; 78306; 80048; 80061; 80076; 83036; 84153; 84443; 85025; A9503

== ENCOUNTER → 2019-07-08 | Outpatient (CLI) | payer OTHER | END | disposition home or self-care (01) | LOC: RAH 10:54 | PROVIDERS: ATTEND Radiology Radiation Oncology | DX: M25.511 Pain in right shoulder (principal) | CPT/HCPCS: 73060 ==

== ENCOUNTER 2019-07-28 08:47 | Inpatient (IN) | payer OTHER ==
[~2019-07-28] VITALS: Ht 172.7 cm; Wt 83.8 kg
[~2019-07-28 08:47] MED LIST changes: +MELA3TAB41 PO; -MELA3TAB66 PO
[2019-07-28 09:34] LABS: BASOPHILS % (AUTO) 0.3 % (0.0-5.0); EOSINOPHILS % (AUTO) 0.3 % (0.0-8.0); LYMPHOCYTES % (AUTO) 12.1 % (21.0-51.0); MEAN CORPUSCULAR HEMOGLOBIN 26.7 pg (27.0-33.0); MEAN CORPUSCULAR HGB CONC 31.1 g/dL (32.0-36.0); MEAN CORPUSCULAR VOLUME 85.9 fL (79-99); MONOCYTES % (AUTO) 7.7 % (3.0-13.0); NEUTROPHILS % (AUTO) 78.7 % (40.0-77.0); PLATELET COUNT (AUTO) 236 K/uL (130-400); RED BLOOD CELL COUNT(AUTO) 3.26 MIL/uL (4.50-6.20); RED CELL DISTRIBUTION WIDTH 13.2 % (11.0-15.5); WHITE BLOOD COUNT (AUTO) 6.9 K/uL (4.8-10.8)
[2019-07-28] MEDS ORDERED: SODIUM CHLORIDE 0.9% 1000ML 1,000 ML IV ONE ×6 (09:43→21:15)
[2019-07-28] MEDS ORDERED: ONDANSETRON HCL 4 MG/2 ML VIAL ONE ×2 (09:43→17:37)
[2019-07-28] MEDS ORDERED: MORPHINE SULFATE 4 MG/1ML SYG ONE ×2 (09:43→14:29)
[2019-07-28 09:47] LABS: POTASSIUM 3.4 mmol/L (3.5-5.1)
[2019-07-28 09:53] LABS: ALBUMIN 2.7 g/dL (3.5-5.0); BILIRUBIN,TOTAL 0.4 mg/dL (0.2-1.0); TOTAL PROTEIN, SERUM 7.4 g/dL (6.0-8.3)
[2019-07-28] MEDS ORDERED: MORPHINE SULFATE 5 MG/ML VIAL ONE (09:56)
[2019-07-28 10:16] LABS: RAPID GROUP A STREP NEGATIVE (NEGATIVE)
[2019-07-28 12:51] LABS: APPEARANCE,URINE Clear (CLEAR); BILIRUBIN,URINE Negative (NEGATIVE); COLOR,URINE Yellow (YELLOW); GLUCOSE, URINE (UA) Negative (NEGATIVE); KETONES,URINE Trace mg/dL (NEGATIVE); LEUKOCYTE ESTERASE ,URINE Negative (NEGATIVE); NITRATE,URINE Negative (NEGATIVE); OCCULT BLOOD,URINE Negative (NEGATIVE); PROTEIN,URINE Trace mg/dL (NEGATIVE)
[2019-07-28 13:25] LABS: BACTERIA,URINE Few /HPF (None Seen); RBC,URINE 0-1 /HPF (0-1); SQUAMOUS EPITHELIAL CELL,UR Few /HPF (0-2)
[2019-07-28 13:26] LABS: MUCUS,URINE Few LPF (None Seen)
[2019-07-28] MEDS ORDERED: CEFTRIAXONE SODIUM 1 GM ONE (15:23)
[2019-07-28] MEDS ORDERED: LEVOFLOXACIN 750 MG/D5W 150 ML 150 ML ONE (15:23)
[2019-07-28] MEDS ORDERED: HYDROMORPHONE 1 MG/1 ML AMP ONE ×3 (15:30→20:29)
[2019-07-28] MEDS ORDERED: POTASSIUM CHLORIDE 20MEQ/100ML 100 ML IV PRN (15:45)
[2019-07-28] MEDS ORDERED: MAG HYDROX/AL HYDROX/SIMETH ES 30 ML SUSP UDCUP PO PRN (15:45)
[2019-07-28] MEDS ORDERED: ONDANSETRON HCL 4 MG/2 ML VIAL IV PRN ×2 (15:45→16:30)
[2019-07-28] MEDS ORDERED: DiphenhydrAMINE HCL 50 MG/ML VIAL IV PRN (15:45)
[2019-07-28] MEDS ORDERED: DIPHENHYDRAMINE HCL 25 MG CAPSULE PO PRN (15:45)
[2019-07-28] MEDS ORDERED: GUAIFENESIN-DM 200/20 MG 10 ML PO PRN (15:45)
[2019-07-28] MEDS ORDERED: HYDRALAZINE HCL 20 MG/ML VIAL IV PRN (15:45)
[2019-07-28] MEDS ORDERED: GLUCAGON 1MG KIT 1 MG ML IM PRN ×2 (15:45→16:00)
[2019-07-28] MEDS ORDERED: ZOLPIDEM TARTRATE 5 MG TAB PO PRN (15:45)
[2019-07-28] MEDS ORDERED: LIDOCAINE HCL-MPF 1% 2ML VIAL IV PRN (15:45)
[2019-07-28] MEDS ORDERED: LACTULOSE 20 GM/30 ML UDCUP PO PRN (15:45)
[2019-07-28] MEDS ORDERED: ACETAMINOPHEN 325 MG TAB PO PRN ×2 (15:45→16:00)
[2019-07-28] MEDS ORDERED: DEXTROSE 50%-WATER 50 ML DISP.SYRIN IV PRN ×2 (15:45→16:00)
[2019-07-28] MEDS ORDERED: POTASSIUM CHLORIDE 10% ELIXIR 20 MEQ/15 ML UDCUP PO PRN (15:45)
[2019-07-28] MEDS ORDERED: NITROGLYCERIN 0.4 MG SL TAB SL PRN (15:45)
[2019-07-28] MEDS ORDERED: HYDROMORPHONE HCL 0.5 MG/0.5 ML ML IVP PRN (16:00)
[2019-07-28] MEDS ORDERED: ONDANSETRON HCL 4 MG/2 ML VIAL IVP PRN (16:00)
[2019-07-28] MEDS ORDERED: HYDROMORPHONE PCA 10 MG/50 ML 50 ML IV PRN (16:30)
[2019-07-28] MEDS ORDERED: IBUPROFEN 400 MG TABLET PO SCH (20:00)
[2019-07-28] MEDS ORDERED: MORPHINE SULFATE 20MG/ML ORAL 0.25 ML PO PRN (20:00)
[2019-07-28] MEDS ORDERED: ALPRAZOLAM 1 MG TAB PO PRN (20:00)
[2019-07-28] MEDS: PHARMACY COMMUNICATION MISC SCH (20:15)
[2019-07-28] MEDS ORDERED: FAMOTIDINE/PF 20 MG/2 ML VIAL IV SCH (21:00)
[2019-07-28] MEDS ORDERED: PANTOPRAZOLE SODIUM 40 MG TABLET.DR ONE (21:50)
[2019-07-28] MEDS ORDERED: DOCUSATE SODIUM 100 MG CAP PO ONE (21:50)
[2019-07-28] MEDS ORDERED: HEPARIN SODIUM 5000UNIT/ML 1ML VIAL ONE (21:50)
[2019-07-28] MEDS ORDERED: FAMOTIDINE/PF 20 MG/2 ML VIAL IV ONE (21:51)
[2019-07-28] MEDS: SODIUM CHLORIDE 0.9% 1000ML 1,000 ML IV SCH (23:45)
[2019-07-29] VITALS (7 sets, daily range): BP systolic 92–153; BP diastolic 50–86
[2019-07-29] MEDS: INSULIN HUMULIN R 100 UNIT/ML 3ML SQ SCH ×5 (00:30→21:00)
[2019-07-29] MEDS: CARVEDILOL 25 MG TABLET PO SCH ×2 (00:30→21:00)
[2019-07-29] MEDS: SODIUM CHLORIDE 0.9% 1000ML 1,000 ML IV SCH ×3 (00:30→12:11)
[2019-07-29] MEDS: HEPARIN SODIUM 5000UNIT/ML 1ML VIAL SQ SCH ×3 (00:30→21:03)
[2019-07-29] MEDS: DOCUSATE SODIUM 100 MG CAP PO SCH ×3 (00:30→21:04)
[2019-07-29] MEDS: CEFTRIAXONE SODIUM 500 MG VIAL IV SCH ×3 (00:30→21:00)
[2019-07-29] MEDS: LORATADINE 10 MG TABLET PO SCH ×3 (00:30→21:01)
[2019-07-29] MEDS: MORPHINE SULFATE 15 MG TABLET.SA PO SCH ×3 (00:30→22:00)
--- NOTE | 2019-07-29 00:41 | NUR ---
Nursing Note Lyndsey RITCHIE started COOPERATIVE EXTENSION AGENT, I was a witness
[2019-07-29] MEDS: POTASSIUM CHLORIDE 20 MEQ ERTAB PO PRN ×5 (00:49→16:45)
[2019-07-29] MEDS: ACETAMINOPHEN 325 MG TAB PO PRN ×3 (00:50→16:46)
[2019-07-29] MEDS: PHARMACY COMMUNICATION MISC SCH ×3 (04:15→20:15)
[2019-07-29 04:45] LABS: BASOPHILS % (AUTO) 0.2 % (0.0-5.0); EOSINOPHILS % (AUTO) 0.4 % (0.0-8.0); HEMATOCRIT 24.5 % (42-54); LYMPHOCYTES % (AUTO) 14.4 % (21.0-51.0); MEAN CORPUSCULAR HEMOGLOBIN 26.8 pg (27.0-33.0); MEAN CORPUSCULAR HGB CONC 31.8 g/dL (32.0-36.0); MEAN CORPUSCULAR VOLUME 84.2 fL (79-99); MONOCYTES % (AUTO) 9.5 % (3.0-13.0); NEUTROPHILS % (AUTO) 74.4 % (40.0-77.0); PLATELET COUNT (AUTO) 200 K/uL (130-400); RED BLOOD CELL COUNT(AUTO) 2.91 MIL/uL (4.50-6.20); RED CELL DISTRIBUTION WIDTH 12.9 % (11.0-15.5); WHITE BLOOD COUNT (AUTO) 5.7 K/uL (4.8-10.8)
[2019-07-29 05:11] LABS: CREATININE 0.6 mg/dL (0.5-1.5)
[2019-07-29] MEDS ORDERED: ACETAMINOPHEN EXTRA STRENGTH 500 MG TABLET PO PRN (05:30)
[2019-07-29] MEDS ORDERED: PROMETHAZINE HCL 25 MG TABLET PO PRN (05:30)
[2019-07-29 05:38] LABS: POTASSIUM 2.8 mmol/L (3.5-5.1)
[2019-07-29] MEDS: TIZANIDINE HCL 2 MG TABLET PO PRN ×2 (06:27→09:09)
--- NOTE | 2019-07-29 08:00 | NUR ---
POTASSIUM PT MADE AWARE OF POTASSIUM LEVEL OF 2.8. PER PT- HE DOES NOT WANT IV POTASSIUM AND ASKED IF WE CAN ADMINISTER PO. ALISON MADE AWARE. STATED OK. WILL CONT TO MONITOR
[2019-07-29] MEDS ORDERED: CEFTRIAXONE SODIUM 1 GM ONE ×2 (08:47→21:08)
[2019-07-29] MEDS: PANTOPRAZOLE SODIUM 40 MG TABLET.DR PO SCH (08:52)
[2019-07-29] MEDS: CARVEDILOL 12.5 MG TABLET PO SCH (08:52)
[2019-07-29] MEDS: NIFEDIPINE ER 30 MG TAB PO SCH (08:52)
[2019-07-29] MEDS ORDERED: MORPHINE SULFATE 15 MG TABLET.SA PO SCH (09:00)
[2019-07-29] MEDS ORDERED: POTASSIUM CHLORIDE 10MEQ/100ML 10 MEQ/100 ML ML IV SCH (09:00)
--- NOTE | 2019-07-29 09:02 | NUR ---
[facility] SW met with pt and Steve Mccartney [phone]. Pt states he is ready for hospice, "I am so tired". Discussed hospice agencies, pt is aware that Dr Ruby recommending [facility] but pt selected [facility]. Pt reports he is not self pay, that he has made payment for COBRA and has information for hospice. SW contacted Rosalie at [facility] and made referral. Pt information faxed to [facility]. DCP pending acceptance and DME
[2019-07-29] MEDS: MELATONIN 3 MG PO SCH (09:04)
[2019-07-29] MEDS: VITAMIN B6 PO SCH (09:04)
--- NOTE | 2019-07-29 09:26 | NUR ---
DCP: [facility] Deny met with pt and Steve Mccartney [phone]. 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 Pt lives at home with his , he has borrowed DME form friends and family. HAS carolina ortiz,w/c, shower chair and BSC. No in home care services at this time. Pt will be discharged home with [facility] services. Consents signed DENY made referral to [facility] Addendum: 07/29/19 at 0930 by MADALYN MIJARES Amended: Links added.
--- NOTE | 2019-07-29 09:30 | NUR ---
[facility] HERE MEETING WITH PT AND
[2019-07-29] MEDS ORDERED: POTASSIUM CHLORIDE 10MEQ/100ML 100 ML IV SCH (10:30)
[2019-07-29] MEDS ORDERED: MAGNESIUM 2GM PREMIX 50ML 50 ML IV PRN (10:30)
--- NOTE | 2019-07-29 14:32 | NUR ---
PER SAMSON, THEY ARE STILL TRYING TO VERIFY BENEFITS WITH COBRA INSURANCE. SAMSON TO UPDATE
[2019-07-29] MEDS ORDERED: IBUPROFEN 800 MG TAB ONE (16:44)
[2019-07-29] MEDS: LEVOFLOXACIN 500 MG/D5W 100 ML 100 ML IV SCH (16:45)
[2019-07-29] MEDS: IBUPROFEN 400 MG TABLET PO PRN (16:57)
[2019-07-29] MEDS ORDERED: MORPHINE SULFATE 15 MG TABLET.SA PO PRN (17:15)
[2019-07-30 00:21] VITALS: BP 90/52
[2019-07-30] MEDS: SODIUM CHLORIDE 0.9% 1000ML 1,000 ML IV SCH ×3 (00:21→15:47)
[2019-07-30] MEDS: PHARMACY COMMUNICATION MISC SCH (03:55)
[2019-07-30 04:00] VITALS: BP 97/60
[2019-07-30] MEDS: TIZANIDINE HCL 2 MG TABLET PO PRN ×2 (04:13→09:27)
[2019-07-30 05:42] LABS: BASOPHILS % (AUTO) 0.2 % (0.0-5.0); EOSINOPHILS % (AUTO) 0.6 % (0.0-8.0); HEMATOCRIT 25.7 % (42-54); LYMPHOCYTES % (AUTO) 10.4 % (21.0-51.0); MEAN CORPUSCULAR HEMOGLOBIN 26.7 pg (27.0-33.0); MEAN CORPUSCULAR HGB CONC 32.3 g/dL (32.0-36.0); MEAN CORPUSCULAR VOLUME 82.6 fL (79-99); MONOCYTES % (AUTO) 7.8 % (3.0-13.0); NEUTROPHILS % (AUTO) 80.1 % (40.0-77.0); PLATELET COUNT (AUTO) 212 K/uL (130-400); RED BLOOD CELL COUNT(AUTO) 3.11 MIL/uL (4.50-6.20); RED CELL DISTRIBUTION WIDTH 13.2 % (11.0-15.5); WHITE BLOOD COUNT (AUTO) 5.3 K/uL (4.8-10.8)
[2019-07-30] MEDS: MORPHINE SULFATE 15 MG TABLET.SA PO SCH ×2 (05:54→14:37)
[2019-07-30 05:56] LABS: ALBUMIN 2.2 g/dL (3.5-5.0); BILIRUBIN,TOTAL 0.4 mg/dL (0.2-1.0); CREATININE 0.6 mg/dL (0.5-1.5); MAGNESIUM 1.9 mg/dL (1.80-2.40); POTASSIUM 3.2 mmol/L (3.5-5.1); TOTAL PROTEIN, SERUM 6.2 g/dL (6.0-8.3)
[2019-07-30] MEDS: INSULIN HUMULIN R 100 UNIT/ML 3ML SQ SCH ×3 (06:05→12:20)
[2019-07-30] MEDS: POTASSIUM CHLORIDE 20 MEQ ERTAB PO PRN ×3 (06:05→15:45)
[2019-07-30 08:00] VITALS: BP 95/55
[2019-07-30] MEDS: MELATONIN 3 MG PO SCH (09:00)
[2019-07-30] MEDS: NIFEDIPINE ER 30 MG TAB PO SCH (09:00)
[2019-07-30] MEDS: CARVEDILOL 12.5 MG TABLET PO SCH (09:00)
[2019-07-30] MEDS: VITAMIN B6 PO SCH (09:00)
[2019-07-30] MEDS: CEFTRIAXONE SODIUM 500 MG VIAL IV SCH (09:27)
[2019-07-30] MEDS: PANTOPRAZOLE SODIUM 40 MG TABLET.DR PO SCH (09:27)
[2019-07-30] MEDS: LORATADINE 10 MG TABLET PO SCH (09:27)
[2019-07-30] MEDS: DOCUSATE SODIUM 100 MG CAP PO SCH (09:27)
[2019-07-30] MEDS: HEPARIN SODIUM 5000UNIT/ML 1ML VIAL SQ SCH (09:47)
--- NOTE | 2019-07-30 10:21 | NUR ---
INPT hospice vs Home with hospice Deny met with pt and family and discussed inpt vs home. Pt state he would like to be evaluated for inpt hospice and once pain is under control, go home with hospice. DENY informed Rosalie at [facility]. Rosalie states they have not been able to get thru to anyone at [facility] for authorization. DENY called [facility], spoke to Mary Jo. Informed of need for assist with getting auth for inpt hospice. She will reach out to [place] our contact for assistance. Waiting for response
[2019-07-30 11:55] VITALS: BP 90/54
[2019-07-30] MEDS: IBUPROFEN 400 MG TABLET PO PRN (12:18)
--- NOTE | 2019-07-30 12:54 | NUR ---
HOSPICE AUTH Deny recd call from Nicole in HR. She has reached out to her contact is and is waiting for response. Sw spoke to Maribel Lamb who deferred me to Paul in HR. DENY spoke to Paul and explained need for help in getting response from insurance. Deny recd call from Rosal[facility]. She was finally able to get thru and spoke to Bella, review nurse at [phone]. Clinicals were sent to Bella and [facility] is waiting for response/auth.
--- NOTE | 2019-07-30 13:56 | NUR ---
[facility] Sw recd call from [facility]. They are now waiting to receive auth. [facility] here to begin paperwork for eval and possible admission to inpt hospice
[2019-07-30] MEDS: LEVOFLOXACIN 500 MG/D5W 100 ML 100 ML IV SCH (15:42)
--- NOTE | 2019-07-30 15:54 | NUR ---
INPT HOSPICE ACCEPTED [facility] met with Rosalie at [facility] is here to admit pt. Dr Henderson did courtesy visit with pt and made recommendations to [facility] for pain management for pt. Per Rosalie, Dr Varghese will be attending and agreed with Dr Henderson's recommendations. [facility] spoke to Armin in Financial Counseling and verified fax was recd to convert account.
== END 2019-07-30 08:47 | disposition hospice, inpatient (51) | DRG 948 ==
LOC: EDH 08:47 → OBSVTOIN 08:48 → EDHIP 08:48 → 4DH 20:54
PROVIDERS: ADMIT Internal Medicine Pulmonary Disease; ATTEND Internal Medicine Pulmonary Disease
DX: G89.3 Neoplasm related pain (acute) (chronic) (principal); C79.51 Secondary malignant neoplasm of bone; C79.89 Secondary malignant neoplasm of other specified sites; C61 Malignant neoplasm of prostate; E87.6 Hypokalemia; E11.9 Type 2 diabetes mellitus without complications; I10 Essential (primary) hypertension; I25.10 Atherosclerotic heart disease of native coronary artery without angina pectoris; Z51.5 Encounter for palliative care; Z88.8 Allergy status to other drugs, medicaments and biological substances
CPT/HCPCS: 36415; 71045; 80048; 80053; 81001; 82948; 83735; 85025; 87040; 87804; 87880; 94760; A4606; G0378; J0696; J1170; J1644; J1815; J1956; J2270; J2405; J3475; J3490; J7030

== ENCOUNTER 2019-07-30 13:40 | Inpatient (IN) | payer OTHER ==
[~2019-07-30] VITALS: Ht 172.7 cm; Wt 76.0 kg
[2019-07-30 16:00] VITALS: BP 93/62
--- NOTE | 2019-07-30 16:28 | NUR ---
DCP: Inpt hospice and home in 1 or two days Pt has been admitted to Inpt Hospice with [facility]. Dr Varghese will be attending. Dr Henderson spoke with pt and Rosalie and made adjustments to medication with goal to dc pt home in 1 to 2 days.
[2019-07-30] MEDS ORDERED: LORAZEPAM 1 MG TABLET PO PRN (17:15)
[2019-07-30] MEDS ORDERED: ONDANSETRON 4 MG TABLET PO PRN (17:15)
[2019-07-30] MEDS ORDERED: TIZANIDINE HCL 2 MG TABLET PO PRN (18:00)
[2019-07-30] MEDS ORDERED: IBUPROFEN 400 MG TABLET PO PRN (18:00)
[2019-07-30] MEDS ORDERED: ALPRAZOLAM 1 MG TAB PO PRN (18:00)
[2019-07-30] MEDS ORDERED: LEVOFLOXACIN 500 MG/D5W 100 ML 100 ML IV SCH (18:00)
[2019-07-30] MEDS ORDERED: SENNOSIDES 8.6 MG TABLET ONE (18:00)
[2019-07-30] MEDS: SENNOSIDES 8.6 MG TABLET PO SCH (18:02)
[2019-07-30] MEDS ORDERED: PHARMACY COMMUNICATION MISC SCH (18:15)
[2019-07-30 20:00] VITALS: BP 94/54
[2019-07-30] MEDS: CARVEDILOL 25 MG TABLET PO SCH (20:30)
[2019-07-30] MEDS ORDERED: MORPHINE SULFATE 20MG/ML ORAL 0.25 ML PO SCH (21:00)
[2019-07-30] MEDS ORDERED: MORPHINE SULFATE 15 MG TABLET.SA PO ONE (21:00)
[2019-07-30] MEDS: CEFTRIAXONE SODIUM 500 MG VIAL IV SCH (21:00)
[2019-07-30] MEDS: LORATADINE 10 MG TABLET PO SCH (21:00)
[2019-07-30] MEDS ORDERED: CEFTRIAXONE SODIUM 1 GM ONE (21:20)
[2019-07-30 23:40] VITALS: BP 102/63
[2019-07-31] MEDS: HYDROMORPHONE PCA 10MG/50 ML ( 0.2 MG/ML ) IV PRN (00:15)
[2019-07-31 04:00] VITALS: BP 109/76
[2019-07-31] MEDS: MORPHINE SULFATE 15 MG TABLET.SA PO PRN ×2 (07:26→09:56)
[2019-07-31 07:30] VITALS: BP 123/72
--- NOTE | 2019-07-31 07:57 | NUR ---
CALL OUT PLACED TO [facility] REGARDING MORPHINE ER 100MG TID ORDER. MEDICATION NOT AVAILABLE PER PHARMACY. PENDING CALL BACK .
[2019-07-31] MEDS: MELATONIN 3 MG PO SCH (09:00)
[2019-07-31] MEDS: VITAMIN B6 PO SCH (09:00)
[2019-07-31] MEDS: NIFEDIPINE ER 30 MG TAB PO SCH (09:00)
[2019-07-31] MEDS ORDERED: CEFAZOLIN SODIUM 1 GM VIAL ONE (09:50)
[2019-07-31] MEDS: SENNOSIDES 8.6 MG TABLET PO SCH ×2 (09:53→20:50)
[2019-07-31] MEDS: LORATADINE 10 MG TABLET PO SCH ×2 (09:54→20:51)
[2019-07-31] MEDS: CARVEDILOL 12.5 MG TABLET PO SCH (09:54)
[2019-07-31] MEDS: PANTOPRAZOLE SODIUM 40 MG TABLET.DR PO SCH (09:54)
[2019-07-31] MEDS: CEFTRIAXONE SODIUM 500 MG VIAL IV SCH ×3 (09:57→20:49)
[2019-07-31 11:00] VITALS: BP 107/62
[2019-07-31] MEDS: BACLOFEN 10 MG TABLET PO SCH ×2 (13:16→20:51)
[2019-07-31] MEDS: MORPHINE SULFATE 15 MG TABLET.SA PO SCH ×2 (13:19→20:50)
[2019-07-31] MEDS: LEVOFLOXACIN 500 MG/D5W 100 ML 100 ML IV SCH (15:08)
--- NOTE | 2019-07-31 15:27 | NUR ---
D/C PLAN Pt now admitted under [facility] hospice with [facility]. Per patient, plan is to return to home with hospice services. Spouse to assist in care. Pt currently having pain medications adjusted. CM to follow with possible transportation needs. Addendum: 07/31/19 at 1529 by ANTONIA MODI CM Amended: Links added.
[2019-07-31 16:00] VITALS: BP 111/63
[2019-07-31 19:30] VITALS: BP 107/49
[2019-07-31] MEDS: CARVEDILOL 25 MG TABLET PO SCH (20:51)
[2019-08-01] MEDS: HYDROMORPHONE PCA 10MG/50 ML ( 0.2 MG/ML ) IV PRN ×2 (00:20→21:20)
[2019-08-01 07:48] VITALS: BP 119/69
[2019-08-01] MEDS: VITAMIN B6 PO SCH (09:00)
[2019-08-01] MEDS: MELATONIN 3 MG PO SCH (09:00)
[2019-08-01] MEDS: CARVEDILOL 12.5 MG TABLET PO SCH (09:00)
[2019-08-01] MEDS: CEFTRIAXONE SODIUM 500 MG VIAL IV SCH ×2 (09:00→20:02)
[2019-08-01] MEDS: NIFEDIPINE ER 30 MG TAB PO SCH (09:00)
[2019-08-01] MEDS: BACLOFEN 10 MG TABLET PO SCH ×3 (09:35→20:01)
[2019-08-01] MEDS: PANTOPRAZOLE SODIUM 40 MG TABLET.DR PO SCH (09:35)
[2019-08-01] MEDS: LORATADINE 10 MG TABLET PO SCH ×2 (09:35→20:04)
[2019-08-01] MEDS: SENNOSIDES 8.6 MG TABLET PO SCH ×2 (09:35→20:01)
[2019-08-01] MEDS: MORPHINE SULFATE 15 MG TABLET.SA PO SCH ×3 (09:36→23:45)
[2019-08-01 11:00] VITALS: BP 106/63
[2019-08-01 16:00] VITALS: BP 122/62
[2019-08-01] MEDS: LEVOFLOXACIN 500 MG/D5W 100 ML 100 ML IV SCH (16:01)
[2019-08-01] MEDS: CARVEDILOL 25 MG TABLET PO SCH (20:03)
[2019-08-01] MEDS: MORPHINE SULFATE 15 MG TABLET.SA PO PRN (20:03)
[2019-08-01 21:17] VITALS: BP 131/69
[2019-08-02] VITALS (7 sets, daily range): BP systolic 124–141; BP diastolic 67–74
[2019-08-02] MEDS: PANTOPRAZOLE SODIUM 40 MG TABLET.DR PO SCH (07:56)
[2019-08-02] MEDS: SENNOSIDES 8.6 MG TABLET PO SCH ×2 (07:56→20:27)
[2019-08-02] MEDS: VITAMIN B6 PO SCH (07:57)
[2019-08-02] MEDS: MORPHINE SULFATE 15 MG TABLET.SA PO SCH ×3 (07:57→23:58)
[2019-08-02] MEDS: NIFEDIPINE ER 30 MG TAB PO SCH (07:57)
[2019-08-02] MEDS: MELATONIN 3 MG PO SCH (07:57)
[2019-08-02] MEDS: CARVEDILOL 12.5 MG TABLET PO SCH (07:57)
[2019-08-02] MEDS: LORATADINE 10 MG TABLET PO SCH ×2 (07:58→20:27)
[2019-08-02] MEDS: BACLOFEN 10 MG TABLET PO SCH ×3 (07:59→23:57)
[2019-08-02] MEDS: CEFTRIAXONE SODIUM 500 MG VIAL IV SCH ×2 (09:00→20:28)
[2019-08-02] MEDS: MORPHINE SULFATE 15 MG TABLET.SA PO PRN (12:18)
[2019-08-02] MEDS: LEVOFLOXACIN 500 MG/D5W 100 ML 100 ML IV SCH (16:04)
[2019-08-02] MEDS ORDERED: LACTULOSE 20 GM/30 ML UDCUP PO PRN (18:45)
[2019-08-02] MEDS: CARVEDILOL 25 MG TABLET PO SCH (20:32)
[2019-08-02] MEDS: HYDROMORPHONE PCA 10MG/50 ML ( 0.2 MG/ML ) IV PRN (20:51)
[2019-08-03 04:18] VITALS: BP 127/71
[2019-08-03 07:30] VITALS: BP 150/73
[2019-08-03] MEDS: NIFEDIPINE ER 30 MG TAB PO SCH (08:16)
[2019-08-03] MEDS: SENNOSIDES 8.6 MG TABLET PO SCH ×2 (08:16→19:19)
[2019-08-03] MEDS: VITAMIN B6 PO SCH (08:17)
[2019-08-03] MEDS: BACLOFEN 10 MG TABLET PO SCH ×3 (08:17→23:50)
[2019-08-03] MEDS: LORATADINE 10 MG TABLET PO SCH ×2 (08:17→19:19)
[2019-08-03] MEDS: PANTOPRAZOLE SODIUM 40 MG TABLET.DR PO SCH (08:17)
[2019-08-03] MEDS: CARVEDILOL 12.5 MG TABLET PO SCH ×2 (08:17→16:35)
[2019-08-03] MEDS: MELATONIN 3 MG PO SCH (08:17)
[2019-08-03] MEDS: CEFTRIAXONE SODIUM 500 MG VIAL IV SCH ×2 (09:00→19:19)
[2019-08-03] MEDS: MORPHINE SULFATE 15 MG TABLET.SA PO SCH ×3 (09:17→23:50)
[2019-08-03] MEDS: LEVOFLOXACIN 500 MG/D5W 100 ML 100 ML IV SCH (16:20)
[2019-08-03] MEDS ORDERED: HYDROMORPHONE HCL 2 MG TAB PO PRN ×2 (18:15)
[2019-08-03] MEDS: CARVEDILOL 25 MG TABLET PO SCH (20:06)
[2019-08-03] MEDS: HYDROMORPHONE PCA 10MG/50 ML ( 0.2 MG/ML ) IV PRN (20:08)
[2019-08-03 20:09] VITALS: BP 121/70
[2019-08-03 23:32] VITALS: BP 106/58
[2019-08-04 05:00] VITALS: BP 121/66
[2019-08-04 07:30] VITALS: BP 140/74
[2019-08-04] MEDS: BACLOFEN 10 MG TABLET PO SCH ×2 (08:08→14:15)
[2019-08-04] MEDS: LORATADINE 10 MG TABLET PO SCH (08:09)
[2019-08-04] MEDS: SENNOSIDES 8.6 MG TABLET PO SCH (08:09)
[2019-08-04] MEDS: PANTOPRAZOLE SODIUM 40 MG TABLET.DR PO SCH (08:09)
[2019-08-04 08:13] VITALS: BP 140/76
[2019-08-04] MEDS: MORPHINE SULFATE 15 MG TABLET.SA PO SCH ×2 (08:13→14:16)
[2019-08-04] MEDS: NIFEDIPINE ER 30 MG TAB PO SCH (08:13)
[2019-08-04] MEDS: CARVEDILOL 12.5 MG TABLET PO SCH (08:13)
[2019-08-04] MEDS: VITAMIN B6 PO SCH (08:14)
[2019-08-04] MEDS: MELATONIN 3 MG PO SCH (08:14)
[2019-08-04] MEDS: CEFTRIAXONE SODIUM 500 MG VIAL IV SCH (09:22)
--- NOTE | 2019-08-04 13:20 | NUR ---
AKANKSHA Note: [facility] approval CM spoke to Rosalie Clements, currently working on getting DME/s delivered at pt's house. Will call CM or primary nurse once DME's delivered. Diane REY updated. Pt safe to DC home via private car once DME's delivered. Primary nurse aware. CM to cont to follow up.
[2019-08-04] MEDS: LEVOFLOXACIN 500 MG/D5W 100 ML 100 ML IV SCH (15:37)
== END 2019-08-04 21:26 | disposition hospice, home (50) | DRG 948 ==
LOC: 4DH 13:40
PROVIDERS: ADMIT Internal Medicine Critical Care Medicine; ATTEND Internal Medicine Critical Care Medicine
DX: G89.3 Neoplasm related pain (acute) (chronic) (principal); C79.51 Secondary malignant neoplasm of bone; C79.89 Secondary malignant neoplasm of other specified sites; C61 Malignant neoplasm of prostate; E11.9 Type 2 diabetes mellitus without complications; I10 Essential (primary) hypertension; I25.10 Atherosclerotic heart disease of native coronary artery without angina pectoris; E87.6 Hypokalemia; Z88.8 Allergy status to other drugs, medicaments and biological substances; Z66 Do not resuscitate
CPT/HCPCS: 82948; G0378; J0690; J0696; J1170; J1956; Q0162